=== PATIENT | male | born 1990 | race Caucasian/White ===

== ENCOUNTER 2021-03-18 20:16 | Emergency (ER) | payer SELFPAY ==
[~2021-03-18] VITALS: Ht 172.7 cm; Wt 90.7 kg
--- NOTE | 2021-03-18 20:29 | NUR ---
PT TAKEN TO ER BED 1
[2021-03-18 20:30] VITALS: BP 155/100
--- NOTE | 2021-03-18 20:30 | NUR ---
30/M BIB SELF C/O R ANKLE PAIN 03/03 SINCE FRIDAY. PT STATES HE WAS PLAYING BASKETBALL WHEN HE HEARD A POP ON HIS ANKLE. PT ICED AND ELEVATED AFFECTED ANKLE BUT NO RELIEF. UPON ASSESSMENT BRUISING AND SWELLING NOTED. PT ON CRUTCHES. DENIES PMH NKDA
--- NOTE | 2021-03-18 21:03 | NUR ---
Dr. Conner examining patient.
--- NOTE | 2021-03-18 22:11 | NUR ---
SPLINT APPLIED BY EMT AT BEDSIDE
--- NOTE | 2021-03-18 23:54 | NUR ---
Patient discharged with v/s stable. Written and verbal after care instructions given and explained. Patient verbalized understanding. Ambulatory with CRUTCHES to car. All questions addressed prior to discharge. Advised to follow up with PMD.
== END 2021-03-18 23:54 | disposition home or self-care (01) ==
LOC: MED 20:16
DX: M25.571 Pain in right ankle and joints of right foot (principal); W21.05XA Struck by basketball, initial encounter; Y93.67 Activity, basketball; Y92.9 Unspecified place or not applicable; Y99.8 Other external cause status
CPT/HCPCS: 29515; 73700; 99284